=== PATIENT | male | born 1955 | race Caucasian/White ===

== ENCOUNTER 2023-01-04 14:38 | Outpatient (OUT) | payer MEDICARE, SELFPAY ==
--- NOTE | 2023-01-04 15:08 | CT_ITS ---
The [address] [address] Patient Name: LEVON SIMS MRN: [id number] date: 1955 Sex: M Assigned Patient Location: CT Current Patient Location: Accession/Order Number: [id number] Exam Date: 01/04/2023 15:05 Report Date: 01/05/2023 09:34 At the request of: ZAN SANTANA Procedure: CT lung screening low-dose EXAM: CT lung screening low-dose HISTORY: Cigarette smoker F17.210. COMPARISON: CT chest dated 11/29/2020 and low-dose CT lung screen dated 03/11/2020. TECHNIQUE: Routine low-dose CT lung screen without intravenous contrast. FINDINGS: Cardiovascular: Stable severe multivessel coronary artery calcifications. Stable mild aortic valvular calcification. Stable mild atheromatous calcifications thoracic and abdominal aorta. Stable mild atheromatous calcifications great vessels off the aortic arch and origin of the right subclavian artery. Stable moderate atheromatous calcification at the origin of the superior mesenteric artery. Lungs: Centrilobular emphysema. Mild atelectatic density lingular segment of the left upper and the bilateral lower lobes. Mild peribronchial thickening consistent with acute and/or chronic bronchitis. Nodules: Stable 0.2 cm noncalcified nodule right lower chest (series 3 image 115). Stable 0.2 cm noncalcified nodule lateral right lower chest (series 3 image 109). Stable 0.6 cm noncalcified pleural-based nodule medial left upper chest (series 3 image 38). Lymphadenopathy: There are no pathologically enlarged axillary, mediastinal or hilar lymph nodes. Other: The trachea, esophagus and thyroid gland are unremarkable. Upper abdomen: Stable partially imaged 5.8 cm right renal cyst measuring 10 Hounsfield units. Stable mild hypertrophy of the bilateral adrenal glands. Osseous: Degenerative changes at the glenohumeral articulations, severe on the right and moderate on the left. There is slight dextroscoliosis of the thoracic spine. There are multilevel endplate spurs and paravertebral ossifications along the spine. CT/CT lung screening low-dose IMPRESSION: Centrilobular emphysema with mild peribronchial thickening consistent with acute and/or chronic bronchitis. Stable 0.2 cm, 0.2 cm and 0.6 cm noncalcified nodules within the chest. There are no pathologically enlarged lymph nodes. Stable severe multivessel coronary artery calcifications. Stable atherosclerotic disease as otherwise described in the body the report. Stable partially imaged 5.8 cm right renal cyst. Lung rads score 2. A low-dose CT lung screen examination in 12 months is recommended. Electronically authenticated by: LIZZETH HARRIS Date: 01/05/2023 09:34
[2023-01-04 16:10] LABS: Alanine Aminotransferase 161 U/L (16-63); Albumin Level 3.9 g/dL (3.4-5.0); Alkaline Phosphatase 100 U/L (46-116); Anion Gap 12.1; Aspartate Amino Transferase 75 U/L (15-37); BUN Creatinine Ratio 18.6; Bilirubin Total 0.8 mg/dL (0.2-1.0); Calcium 8.7 mg/dL (8.5-10.1); Carbon Dioxide 26.7 mmol/L (21.0-32.0); Chloride 100 mmol/L (98-107); Chol HDL Ratio 2.9; Cholesterol 159 mg/dL (<=200); Estimated GFR (African America >60 (>=60); Estimated GFR (Non-African Ame >60 (>=60); Globulin 3.8 g/dL; Glucose 93 mg/dL (74-106); HDL Cholesterol 55 mg/dL (40-60); LDL Cholesterol Calculated 80.8 mg/dL; Potassium 3.8 mmol/L (3.5-5.1); Sodium 135 mmol/L (136-145); Total Protein 7.7 g/dL (6.4-8.2); Triglycerides 116 mg/dL (<=150); VLDL CHOLESTEROL 23.2 mg/dL
[2023-01-04 16:21] LABS: Prostate Specific Antigen Scrn 0.68 ng/mL (<=4.00)
== END 2023-01-04 14:39 | disposition home or self-care (01) ==
PROVIDERS: PCP Internal Medicine; Visit Provider Internal Medicine
DX: F17.210 Nicotine dependence, cigarettes, uncomplicated (principal); I10 Essential (primary) hypertension; E78.2 Mixed hyperlipidemia; M19.91 Primary osteoarthritis, unspecified site; Z12.5 Encounter for screening for malignant neoplasm of prostate
CPT/HCPCS: 36415; 71271; 80053; 80061; G0103

== ENCOUNTER 2025-03-30 10:54 | Emergency (ER) | payer OTHER, MEDICARE, SELFPAY ==
--- OUTSIDE RECORDS SUMMARY | 2025-03-16 10:45 | XMS_ITS | Encounter Summary ---
Author Organization [facility] Address [address] [facility] [place] [address] Care Team Providers Care Driver Material Handler Name Role Phone Jacoby Ash MD Primary Care Provider [phone] Jacoby Ash MD Unavailable [phone] Encounter Details DateTypeDepartmentCare Team (Latest Contact Info)Yqaczwzauje87/05/2025 10:45 AM ESTOffice Visit [facility] [address] [place] [address] Jacoby Ash MD [address] [facility] [address] [place], [place] [id number] Centrilobular emphysema (HCC) (Primary Dx); Acute bronchiolitis with bronchospasm; Allergic rhinitis, unspecified seasonality, unspecified trigger Social History Tobacco UseTypesPacks/DayYears UsedDateSmoking Tobacco: Every LnzNmjdqiqaad220 Smokeless Tobacco: Never Tobacco Cessation:Ready to Q uit: Not Asked; Counseling Given: Yes Alcohol UseStandard Drinks/GnhdDnfgdrleCud97 (1 standard drink = 0.6 oz pure alcohol)PHQ-2AnswerDate RecordedPatient Health Questionnaire-2 Mmqbk405 Sex and Gender InformationValueDate RecordedSex Assigned at BirthNot on file Legal DalAzft5806/24/2022 6:35 PM EDTGender IdentityNot on fileSexual Orientation Not on filedocumented as of this encounter Last Filed Vital Signs Vital SignReadingTime TakenCommentsBlood Lpttijpp326/7803/16/2025 11:10 AM EST Zfvab752103/16/2025 11:10 AM ESTTemperature--Respiratory Wyuo821105/17/2024 11:10 AM ESTOxygen Pkptplxcoy60%03/16/2025 11:10 AM ESTInhaled Oxygen Concentration-- Hnchrj09.3 kg (166 lb)03/16/2025 11:10 AM NUADyzebf466.2 cm (5' 7 )03/16/2025 11:10 AM ESTBody Mass Nchit7055/05/2025 11:10 AM ESTdocumented in this encounter Functional Status * Over the past 2 weeks, how often have you been bothered by any of the following problems?QuestionAnswerDate of AssessmentAuthorLittle interest or pleasure in doing thingsSeveral days03/16/2025 11:06 AM Arlene AREVALOeling down, depressed, or hopelessNot at all03/16/2025 11:06 AM SALAZAR AREVALO Patient Health Questionnaire-2 Yfrzv974 11:06 AM SALAZAR AREVALO documented as of this encounter Progress Notes * Jacoby Ash MD - 03/16/2025 10:45 AM EST Images from the original note were not included. Subjective Patient ID: Kendrick Alatorre is a 69 y.o. male who presents for No chief complaint on file.. Kendrick presents today for breathing issues. A week ago he started feeling SOB, cough, headache with vomiting, he also had a sore throat. His breathing issues 5 days ago. Over the past 2 weeks, how often have you been bothered by any of the following problems? Little interest or pleasure in doing things: Several days Feeling down, depressed, or hopeless: Not at all Patient Health Questionnaire-2 Score: 1 Current Outpatient Medications on File Prior to Visit Medication Sig Dispense Refill amLODIPine (Norvasc) 10 MG tablet Take 1 tablet (10 mg) by mouth Daily 90 tablet 3 irbesartan-hydroCHLOROthiazide (Avalide) 150-12.5 MG tablet Take 1 tablet by mouth Daily 100 tablet3 meloxicam (Mobic) 15 MG tablet Take 1 tablet (15 mg) by mouth Daily 90 tablet 1 No current facility-administered medications on file prior to visit. I have reviewed and reconciled the history and medication list with the patient today. No Known Allergies Social History Tobacco Use Smoking status: Every Day Current packs/day: 1.00 Average packs/day: 1 pack/day for 47.0 years (47.0 ttl pk-yrs) Types: Cigarettes Smokeless tobacco: Never Vaping Use Vaping status: Never Used Substance Use Topics Alcohol use: Yes Alcohol/week: 18.0 - 24.0 standard drinks of alcohol Types: 18 - 24 Standard drinks or equivalent per week Drug use: Yes Types: Marijuana Family History Problem Relation Name Age of Onset Stroke Father Past Medical History: Diagnosis Date Hypertension History reviewed. No pertinent surgical history. Visit Vitals Smoking Status Every Day Review of Systems Objective Physical Exam Constitutional: General: He is not in acute distress. Appearance: He is normal weight. He is not ill-appearing. HENT: Head: Normocephalic. Nose: Congestion present. Mouth/Throat: Pharynx: Posterior oropharyngeal erythema present. No oropharyngeal exudate. Cardiovascular: Rate and Rhythm: Normal rate and regular rhythm. Heart sounds: Normal heart sounds. No murmur heard. Pulmonary: Effort: Pulmonary effort is normal. Breath sounds: Wheezing present. Musculoskeletal: General: No swelling. Right lower leg: No edema. Left lower leg: No edema. Neurological: Mental Status: He is alert. Psychiatric: Mood and Affect: Mood normal. Thought Content: Thought content normal. Judgment: Judgment normal. Assessment/Plan Diagnoses and all orders for this visit: Centrilobular emphysema (HCC) - albuterol HFA (Ventolin HFA) 90 mcg/act inhaler; Inhale 2 puffs every 4 (four) hours if needed for wheezing or shortness of breath Acute bronchiolitis with bronchospasm - triamcinolone acetonide (Kenalog-40) injection 40 mg Allergic rhinitis, unspecified seasonality, unspecified trigger No follow-ups on file. documented in this encounter Plan of Treatment DateTypeDepartmentCare Team (Latest Contact Info)Qrckwapeifg44/22/2025 9:00 AM ESTOffice Visit [facility] [address] [facility] [address] [place] [address] Jacoby Ash MD [address] [facility] 110 [place] [address] documented as of this encounter Visit Diagnoses Diagnosis Centrilobular emphysema (HCC)- Primary Acute bronchiolitis with bronchospasm Acute bronchiolitis due to other infectious organisms Allergic rhinitis, unspecified seasonality, unspecified trigger documented in this encounter Administered Medications Medication OrderMAR ActionAction DateDoseRateSite triamcinolone acetonide (Kenalog-40) injection 40 mg 40 mg, Intramuscular, Once, On Wed03/16/25 at 1145, For 1 dose Indications:Acute bronchiolitis with izhmnjyedfriMlzja92/05/2025 11:53 AM EST40 mgRight Glutealdocumented in this encounter Additional Health Concerns AssessmentNoted TimePHQ-9 Depression Total Score: 2:00 PM EDT documented as of this encounter Care Teams Team MemberRelationshipSpecialtyStart DateEnd Date Jacoby Ash MD [address] [facility] [address] [place] [address] PCP - GeneralInternal Medicine08/18/22 Jacoby Ash MD [address] [facility] [address] [place] [address] PCP - Devoted04/12/24documented as of this encounter
[2025-03-30] VITALS (44 sets, daily range): BP systolic 103–123; BP diastolic 64–90; PULSE 71–116; TEMP 36.6; O2SAT 93–98; BMI 26.6
--- OUTSIDE RECORDS SUMMARY | 2025-03-30 09:45 | XMS_ITS | Encounter Summary ---
Author Organization [facility] Address [address] [facility] [place] [address] Care Team Providers Care Car Unloader Helper Name Role Phone Jacoby Ash MD Primary Care Provider Jacoby Ash MD Unavailable [phone] Reason for Visit * ReasonCommentsEdema Encounter Details DateTypeDepartmentCare Team (Latest Contact Info)Vtawzrgrenc92/19/2025 9:45 AM ESTOffice Visit [facility] [address] [place] [address] Jacoby Ash MD [address] [facility] 110 [place], [place] [id number] Edema, unspecified type (Primary Dx); Abdominal distention; Elevated LFTs; Centrilobular emphysema (HCC) Social History Tobacco UseTypesPacks/DayYears UsedDateSmoking Tobacco: Every MeeQfoswuiasz622 Smokeless Tobacco: NeverAlcohol UseStandard Drinks/VwyvKyqcribuVpc71 (1 standard drink = 0.6 oz pure alcohol)PHQ-2AnswerDate RecordedPatient Health Questionnaire-2 Huqhr40305/31/2024Sex and Gender InformationValueDate RecordedSex Assigned at BirthNot on fileLegal EslSgte2906/24/2022 6:35 PM EDTGender Identity Not on fileSexual OrientationNot on filedocumented as of this encounter Last Filed Vital Signs Vital SignReadingTime TakenCommentsBlood Sneshvea783/7603/30/2025 9:59 AM EST Rkadf501803/30/2025 9:59 AM ESTTemperature--Respiratory Rate--Oxygen Qkdtcwzrte55% 03/30/2025 9:59 AM ESTInhaled Oxygen Concentration--Zoobta69.6 kg (180 lb) 03/30/2025 9:59 AM HMZMhhvmp219.2 cm (5' 7 )03/30/2025 9:59 AM ESTBody Mass Index28.19105/31/2024 9:59 AM ESTdocumented in this encounter Functional Status * Over the past 2 weeks, how often have you been bothered by any of the following problems?QuestionAnswerDate of AssessmentAuthorLittle interest or pleasure in doing thingsNot at all03/30/2025 10:00 AM Stacy Espinoza LPN Feeling down, depressed, or hopelessNot at all03/30/2025 10:00 AM Stacy Espinoza LPNPatient Health Questionnaire-2 Xvsvg73205/31/2024 10:00 AM Stacy Espinoza LPN documented as of this encounter Progress Notes * Jacoby Ash MD - 03/30/2025 9:45 AM EST Images from the original note were not included. Subjective Patient ID: Kendrick Alatorre is a 69 y.o. male who presents for Edema. Edema Patient complains of edema in bilateral ankles. Onset of symptoms was 5 days ago,.since that time. Associated factors include: weight gain. Cardiac risk factors include advanced age (older than 55 for men, 65 for women), hypertension, male gender, and smoking/ tobacco exposure. Edema Over the past 2 weeks, how often have you been bothered by any of the following problems? Little interest or pleasure in doing things: Not at all Feeling down, depressed, or hopeless: Not at all Patient Health Questionnaire-2 Score: 0 Current Outpatient Medications on File Prior to Visit Medication Sig Dispense Refill albuterol HFA (Ventolin HFA) 90 mcg/act inhaler Inhale 2 puffs every 4 (four) hours if needed for wheezing or shortness of breath 8 g 5 amLODIPine (Norvasc) 10 MG tablet Take 1 [...] reviewed. No pertinent surgical history. Visit Vitals BP 132/76 Pulse 92 Ht 5' 7 Wt 180 lb SpO2 99% BMI 28.19 kg/m?? Smoking Status Every Day BSA 1.96 m?? Review of Systems Objective Physical Exam Constitutional: General: He is not in acute distress. Appearance: He is normal weight. He is not ill-appearing. HENT: Head: Normocephalic. Cardiovascular: Rate and Rhythm: Normal rate and regular rhythm. Heart sounds: Normal heart sounds. No murmur heard. Pulmonary: Effort: Pulmonary effort is normal. Prolonged expiration present. Breath sounds: Decreased air movement present. Abdominal: General: Abdomen is protuberant. Bowel sounds are decreased. There is distension. Tenderness: There is no abdominal tenderness. Hernia: No hernia is present. Comments: Distended abdomen Musculoskeletal: General: No swelling. Right lower leg: No edema. Left lower leg: No edema. Neurological: Mental Status: He is alert. Psychiatric: Mood and Affect: Mood normal. Assessment/Plan Diagnoses and all orders for this visit: Edema, unspecified type - Sent to ER. - Last Echo was a few years ago, preserved EF with septal hypertrophy, mild diastolic dysfunction - Is on Amlodipine 10mg, but has been for some time Abdominal distention - Exam is concerning for tense ascites. Sent to ER for evaluation - Patient was sent to the ER for further evaluation and treatment. The ER was called with a report of patient's condition and history. Medical records will be sent as well. Elevated LFTs - He has a history of LFT elevation felt due to fatty liver Centrilobular emphysema (HCC) Follow up with Dr. Jacoby Ash in about 3 days (around 04/02/2025). documented in this encounter Plan of Treatment DateTypeDepartmentCare Team (Latest Contact Info)Hjrlftptwfz94/22/2025 9:00 AM ESTOffice Visit [facility] [place] [facility] [address] [facility] 110 [place] [address] Jacoby Ash MD [address] [facility] 110 [place] [address] documented as of this encounter Visit Diagnoses Diagnosis Edema, unspecified type- Primary Abdominal distention Flatulence, eructation, and gas pain Elevated LFTs Other abnormal blood chemistry Centrilobular emphysema (HCC) documented in this encounter Additional Health Concerns AssessmentNoted TimePHQ-9 Depression Total Score: 2:00 PM EDT documented as of this encounter Care Teams Team MemberRelationshipSpecialtyStart DateEnd Date Jacoby Ash MD [address] [facility] 110 [place] [address] PCP - GeneralInternal Medicine08/18/22 Jacoby Ash MD [address] [facility] [address] [place] [address] PCP - Devoted04/12/24documented as of this encounter
--- NOTE | 2025-03-30 11:32 | XR_ITS ---
The [address] [address] Patient Name: LEVON SIMS MRN: [id number] date: 1955 Sex: M Assigned Patient Location: ER Current Patient Location: ER Accession/Order Number: [id number] Exam Date: 03/30/2025 11:37 Report Date: 03/30/2025 12:10 At the request of: CLARK TURNER MD Procedure: XR chest 1V PORTABLE AP ERECT CHEST 1121 hours CLINICAL HISTORY: Bloating and lower extremity swelling. History of pneumonia and tobacco use. COMPARISON: CT 11/29/2020 and 01/04/2023 There is shallow inspiration. The heart is borderline prominent though also likely accentuated due to low lung volume. There is also a left pericardial fat pad. There is no suspected vascular congestion. No pneumothorax is seen. Minimal scarring or atelectasis is visualized at the left base. On the right right, there is basilar atelectatic and/or infiltrative change. Pleural effusion is not excluded, particularly on that side without a lateral view. There is mild degenerative change at the shoulders and spine. XR/XR chest 1V IMPRESSION: SHALLOW INSPIRATION. POSSIBLE BORDERLINE CARDIOMEGALY. BIBASILAR PARENCHYMAL CHANGE, GREATER ON THE RIGHT WHERE PLEURAL EFFUSION IS NOT EXCLUDED. Impression dictated by: Kim Quigley M.D. 03/30/2025 12:10 PM Dictation Location: [place] [address] Electronically authenticated by: [id number] Y Date: 03/30/2025 12:10
--- NOTE | 2025-03-30 11:32 | ECG_ITS ---
The [facility] Test Date: 2025-03-30 Pat Name: LEVON SIMS Department: Room: - Gender: Male Information Security Analyst: : 1955 Requested By: ZAN SANTANA Order Number: [id number] [facility] MD: WILL DIGGS M.D. Measurements Intervals [place] Rate: 99 P: -[id number] RI: -93291 QRS: -8 QRSD: 86 T: -68 QT: 364 QTc: 420 Interpretive Statements 1210 Atrial fibrillation 3134 Anterior myocardial infarction, age undetermined 3614 Cannot rule out inferior myocardial infarction, age undetermined 7300 Indeterminate axis 9150 abnormal ECG Compared to ECG 05/02/2021 14:23:25 Myocardial infarct finding now present Indeterminate axis now present Sinus rhythm no longer present Atrial premature complex(es) no longer present Electronically Signed On 03-30-2025 18:45:55 EST by WILL DIGGS M.D.
[2025-03-30 11:42] LABS: Hematocrit 39.1 % (42.0-54.0); Hemoglobin 13.2 g/dL (14.0-18.0); Immature Granulocytes Abs Auto 0.05 10^3/uL (0.00-0.03); Immature Granulocytes Pct Auto 0.4 % (0.0-0.5); Lymphocytes Absolute Auto 1.6 10^3/uL (1.2-3.8); Mean Corpuscular HGB Conc 33.8 g/dL (29.9-35.2); Mean Corpuscular Hemoglobin 33.9 pg (25.9-34.0); Mean Corpuscular Volume 100.5 fL (80.0-94.0); Platelet Count 285 10^3/uL (150-450); Red Blood Count 3.89 10^6/uL (4.70-6.10); White Blood Count 13.6 10^3/uL (4.0-11.0)
[2025-03-30 12:21] LABS: Alanine Aminotransferase 71 U/L (16-63); Albumin Globulin Ratio 0.7; Albumin Level 2.9 g/dL (3.4-5.0); Alkaline Phosphatase 104 U/L (46-116); Anion Gap 10.2; Aspartate Amino Transferase 40 U/L (15-37); Blood Urea Nitrogen 29.0 mg/dL (7.0-18.0); Calcium 8.7 mg/dL (8.5-10.1); Carbon Dioxide 26.2 mmol/L (21.0-32.0); Chloride 102 mmol/L (98-107); Estimated GFR (African America >60 (>=60 mL/min/1.73m^2); Estimated GFR (Non-African Ame >60 (>=60 mL/min/1.73m^2); Globulin 4.3 g/dL; Glucose 127 mg/dL (74-106); Potassium 3.4 mmol/L (3.5-5.1); Sodium 135 mmol/L (136-145); Total Protein 7.2 g/dL (6.4-8.2)
--- NOTE | 2025-03-30 13:28 | ED.GENADUL1 ---
HPI HPI - General Adult General Chief complaint: Recheck/Abnormal Lab/Rx Stated complaint: SENT BY DR SANTANA Time Seen by Provider: 03/30/25 11:31 Source: patient Mode of arrival: walk-in History of Present Illness HPI narrative: The patient have a history of hypertension presenting to us with 2 weeks history of shortness of breath, although the patient initially mentioned that he had pneumonia but when asked he never went to the doctor and got any antibiotic but it was just his idea that he had an infection, the patient has been short of breath at least for the last 2 weeks he also has decreased energy, he never had any chest pain but he had developed bilateral leg edema and abdominal swelling and that why he went to the doctor today When he went to his primary care doctor he told him to come to the ER Related Data Home Medications ?Medication ?Instructions ?Recorded ?Confirmed albuterol sulfate 90 mcg/actuation inhalation 03/30/25 aerosol inhaler amlodipine 10 mg tablet 10 mg PO DAILY 03/30/25 03/30/25 irbesartan 150 1 tab PO DAILY 03/30/25 03/30/25 mg-hydrochlorothiazide 12.5 mg tablet meloxicam 15 mg tablet 15 mg PO DAILY 03/30/25 03/30/25 Allergies Allergy/AdvReac Type Severity Reaction Status Date / Time No Known Drug Allergies Allergy Verified 03/30/25 11:08 Review of Systems ROS Status of ROS 10 or more systems reviewed and unremarkable except as noted in history and below [facility] Medical History (Updated 03/30/25 @ 16:20 by Nancy Fox MD) HTN (hypertension) ?I10 - Essential (primary) hypertension (ICD-10) Social History Little interest or pleasure in doing things: not at all Feeling down, depressed, or hopeless: not at all Exam Narrative Exam Narrative: Nurses notes and vital signs reviewed and patient is not hypoxic. General: Well-appearing and in no apparent distress. Skin: Warm, dry, no pallor noted. No rash. Head: Normocephalic, atraumatic. Neck: Supple, non-tender. Eye: Pupils are equal, round and EOMI. No scleral icterus. Cardiovascular: Irregular rate and Rhythm without murmur, gallop or rub. Respiratory: No accessory muscle use or respiratory distress. Lungs there is decreased entry in the bases and possible crackles as well normal air entry in the apices Chest Wall: no tenderness Back: No midline thoracic or lumbar vertebral tenderness. No CVA tenderness Musculoskeletal: 1+ pitting edema in the lower extremity GI: Abdomen is soft, non-distended. Normal bowel sounds. No masses appreciated. No tenderness to palpation. No rebound, guarding, or rigidity noted. Neurological: A&O x4. No cranial nerve dysfunction observed. No truncal ataxia. Moves all extremities. Sensation intact. Psychiatric: Cooperative and interactive. Normal mood and affect. Constitutional Vital Signs, click to edit/add: Last Vital Signs Temp 97.8 F 03/30/25 11:09 Pulse 102 H 03/30/25 15:10 Resp 30 H 03/30/25 15:10 BP 123/89 03/30/25 11:37 Pulse Ox 95 03/30/25 15:00 O2 Del Method Room Air 03/30/25 11:09 Course Vital Signs Vital signs: Vital Signs Temperature 97.8 F 03/30/25 11:09 Pulse Rate 115 H 03/30/25 11:09 Respiratory Rate 20 03/30/25 11:09 Blood Pressure 104/90 03/30/25 11:09 Pulse Oximetry 98 03/30/25 11:09 Oxygen Delivery Method Room Air 03/30/25 11:09 Temperature 97.8 F 03/30/25 11:09 Pulse Rate 102 H 03/30/25 15:10 Respiratory Rate 30 H 03/30/25 15:10 Blood Pressure 123/89 03/30/25 11:37 Pulse Oximetry 95 03/30/25 15:00 Oxygen Delivery Method Room Air 03/30/25 11:09 Medical Decision Making [facility] Narrative Medical decision making narrative: The patient EKG upon arrival showing A-fib with a heart rate of [address] elevation but there is some T wave inversion that is in lead to 3 and aVF with no old EKG for comparison The patient did not report any chest pain but he has been having 2 weeks of shortness of breath and he had never diagnosed with pneumonia The patient chest x-ray shows bilateral congestion and possible effusion with suspicious of infiltrate although the patient does not have any cough But the patient had a blood culture and he was started on levofloxacin to cover for possible infection The patient chemistry was showing abnormal kidney function with elevated BN peptide of around 7000 in addition to elevated troponin of 800 and repeated result after 2 hours was around that number as well there was no elevation The patient case discussed with Dr. Liu from the cardiology service and he requested the patient to be transferred to [facility] for further evaluation possibly diagnose of acute congestive heart failure, the patient also to be started on Lasix 40 mg IV in addition to 1 dose of digoxin and Lovenox 1 dose The patient is agreeable to transfer and was accepted by Lab Data Labs: Lab Results 03/30/25 03/30/25 Range/Units 11:35 14:20 WBC 13.6 H (4.0-11.0) 10^3/uL RBC 3.89 L (4.70-6.10) 10^6/uL Hgb 13.2 L (14.0-18.0) g/dL Hct 39.1 L (42.0-54.0) % MCV 100.5 H (80.0-94.0) fL MCH 33.9 (25.9-34.0) pg MCHC 33.8 (29.9-35.2) g/dL RDW 13.3 (11.0-15.0) % Plt Count 285 (150-450) 10^3/uL MPV 8.8 L (9.5-13.5) fL Neut % (Auto) 80.0 H (43.0-75.0) % Lymph % (Auto) 11.5 L (20.5-60.0) % [place] % (Auto) 7.6 (1.7-12.0) % Eos % (Auto) 0.1 L (0.9-7.0) % Baso % (Auto) 0.4 (0.2-2.0) % Neut # (Auto) 10.9 H (1.4-6.5) 10^3/uL Lymph # (Auto) 1.6 (1.2-3.8) 10^3/uL [place] # (Auto) 1.0 H (0.3-0.8) 10^3/uL Eos # (Auto) 0.0 (0.0-0.7) 10^3/uL Baso # (Auto) 0.1 (0.0-0.1) 10^3/uL Abs Immat Gran (auto) 0.05 H (0.00-0.03) 10^3/uL Imm/Tot Granulo (auto) 0.4 (0.0-0.5) % Sodium 135 L (136-145) mmol/L Potassium 3.4 L (3.5-5.1) mmol/L Chloride 102 (98-107) mmol/L Carbon Dioxide 26.2 (21.0-32.0) mmol/L Anion Gap 10.2 BUN 29.0 H (7.0-18.0) mg/dL Creatinine 1.09 (0.70-1.30) mg/dL Est GFR ( Amer) >60 (>=60 mL/min/1.73m^2) Est GFR (Non-Af Amer) >60 (>=60 mL/min/1.73m^2) BUN/Creatinine Ratio 26.6 Glucose 127 H (74-106) mg/dL Calcium 8.7 (8.5-10.1) mg/dL Magnesium 2.0 (1.8-2.4) mg/dL Total Bilirubin 0.7 (0.2-1.0) mg/dL AST 40 H (15-37) U/L ALT 71 H (16-63) U/L Alkaline Phosphatase 104 (46-116) U/L Troponin I High Sens 889.9 H* 863.1 H* (4.0-76.1) pg/mL NT-Pro-B Natriuret Pep 7403.0 H* (<=900.0) pg/mL Total Protein 7.2 (6.4-8.2) g/dL Albumin 2.9 L (3.4-5.0) g/dL Globulin 4.3 g/dL Albumin/Globulin Ratio 0.7 Discharge Plan Discharge Chief Complaint: Recheck/Abnormal Lab/Rx Clinical Impression: Acute CHF (congestive heart failure), A-fib, Acute non-ST elevation myocardial infarction (NSTEMI) Patient Disposition: [facility] Time of Disposition Decision: 16:20
[2025-03-30] MEDS: ASPIRIN 81 MG TAB.CHEW 324 MG PO (13:41)
--- OUTSIDE RECORDS SUMMARY | 2025-03-30 13:53 | XMS_ITS | Encounter Summary ---
Author Organization [facility] Address [address] [facility] [place] [address] Care Team Providers Care Manager Payer Name Role Phone Jacoby Ash MD Primary Care Provider [phone] Jacoby Ash MD Unavailable [phone] Encounter Details DateTypeDepartmentCare Team (Latest Contact Info)Oizmswzliwy15/05/2025Travel Social History Tobacco UseTypesPacks/DayYears UsedDateSmoking Tobacco: Every XyeUpicgdysxb699 Smokeless Tobacco: NeverAlcohol UseStandard Drinks/FfexUikkcpumBgk79 (1 standard drink = 0.6 oz pure alcohol)PHQ-2AnswerDate RecordedPatient Health Questionnaire-2 Jchhc222Sex and Gender InformationValueDate RecordedSex Assigned at BirthNot on fileLegal RidSzmj0706/24/2022 6:35 PM EDTGender Identity Not on fileSexual OrientationNot on filedocumented as of this encounter Functional Status * Over the past 2 weeks, how often have you been bothered by any of the following problems?QuestionAnswerDate of AssessmentAuthorLittle interest or pleasure in doing thingsSeveral days03/16/2025 11:06 AM Arlene AREVALOeling down, depressed, or hopelessNot at all03/16/2025 11:06 AM SALAZAR AREVALO Patient Health Questionnaire-2 Laimh710 11:06 AM SALAZAR AREVALO documented as of this encounter Plan of Treatment DateTypeDepartmentCare Team (Latest Contact Info)Lyfcdbrttxw45/22/2025 9:00 AM ESTOffice Visit [facility] [place] [facility] [address] [place] [address] Jacoby Ash MD [address] [place], [place] [address] documented as of this encounter Visit Diagnoses Not on filedocumented in this encounter Additional Health Concerns AssessmentNoted TimePHQ-9 Depression Total Score: 2:00 PM EDT documented as of this encounter Care Teams Team MemberRelationshipSpecialtyStart DateEnd Date Jacoby Ash MD [address] [place], [place] [address] PCP - GeneralInternal Medicine08/18/22 Jacoby Ash MD [address] [place] [address] PCP - Devoted04/12/24documented as of this encounter
--- OUTSIDE RECORDS SUMMARY | 2025-03-30 13:54 | XMS_ITS | Encounter Summary ---
Author Organization [facility] Address [address] [facility] [place] [address] Care Team Providers Care Maintenance Leader Name Role Phone Jacoby Ash MD Primary Care Provider [phone] Jacoby Ash MD Unavailable [phone] Encounter Details DateTypeDepartmentCare Team (Latest Contact Info)Dgfwbvnarjr19/17/2025Telephone [facility] [address] [place] [address] Jacoby Ash MD [address] [place], [place] [id number] Social History Tobacco UseTypesPacks/DayYears UsedDateSmoking Tobacco: Every RdhGhoajvsxfm528 Smokeless Tobacco: NeverAlcohol UseStandard Drinks/DnzbNhqvdwvhZjw63 (1 standard drink = 0.6 oz pure alcohol)PHQ-2AnswerDate RecordedPatient Health Questionnaire-2 Kaasi96605/31/2024Sex and Gender InformationValueDate RecordedSex Assigned at BirthNot on fileLegal UmwElmj8406/24/2022 6:35 PM EDTGender Identity Not on fileSexual OrientationNot on filedocumented as of this encounter Miscellaneous Notes * Telephone Encounter - Stacy Bergeron LPN - 03/29/2025 2:17 PM EST Appt sched tomorrow * Telephone Encounter - Katherine Campbell - 03/28/2025 11:42 AM EST Kendrick called , he stated he is having issues using his inhaler and can't use it. He states it does really help and he needs it but it is making his throat so sore that he had to stop it. He is asking to discuss his options. documented in this encounter Plan of Treatment DateTypeDepartmentCare Team (Latest Contact Info)Akxyngxbhgw08/22/2025 9:00 AM ESTOffice Visit [facility] [place] [facility] [address] [facility] 110 [place] [address] Jacoby Ash MD [address] [facility] 110 [place] [address] documented as of this encounter Visit Diagnoses Not on filedocumented in this encounter Additional Health Concerns AssessmentNoted TimePHQ-9 Depression Total Score: 2:00 PM EDT documented as of this encounter Care Teams Team MemberRelationshipSpecialtyStart DateEnd Date Jacoby Ash MD [address] [facility] 110 [place] [address] PCP - GeneralInternal Medicine08/18/22 Jacoby Ash MD [address] [facility] [address] [place] [address] PCP - Devoted04/12/24documented as of this encounter
--- OUTSIDE RECORDS SUMMARY | 2025-03-30 13:54 | XMS_ITS | Encounter Summary ---
Author Organization [facility] Address [address] [facility] [place] [address] Care Team Providers Care Hr Specialist Name Role Phone Jacoby Ash MD Primary Care Provider [phone] Jacoby Ash MD Unavailable [phone] Encounter Details DateTypeDepartmentCare Team (Latest Contact Info)Wwzfqcxvucm49/19/2025amboo flowsheet [facility] [place] [facility] [address] [place] [phone] Jacoby Ash MD [address] [place], [place] [address] Social History Tobacco UseTypesPacks/DayYears UsedDateSmoking Tobacco: Every KzzGurckukbux208 Smokeless Tobacco: NeverAlcohol UseStandard Drinks/TddzBbtivxgcJfr05 (1 standard drink = 0.6 oz pure alcohol)PHQ-2AnswerDate RecordedPatient Health Questionnaire-2 Huiph22805/31/2024Sex and Gender InformationValueDate RecordedSex Assigned at BirthNot on fileLegal ItzBuvd8306/24/2022 6:35 PM EDTGender Identity Not on fileSexual OrientationNot on filedocumented as of this encounter Plan of Treatment DateType[facility] [[email or web address]]mentCare Team (Latest Contact Info)Wlpevuwqshy15/22/2025 9:00 AM ESTOffice Visit [facility] [place] [facility] [address] [place] [phone] Jacoby Ash MD [address] [place] [place] [address] documented as of this encounter Visit Diagnoses Not on filedocumented in this encounter Additional Health Concerns AssessmentNoted TimePHQ-9 Depression Total Score: 2:00 PM EDT documented as of this encounter Care Teams Team MemberRelationshipSpecialtyStart DateEnd Date Jacoby Ash MD [address] [facility] 110 [place] [address] PCP - GeneralInternal Medicine08/18/22 Jacoby Ash MD [address] [facility] 110 [place] [address] PCP - Devoted04/12/24documented as of this encounter
--- OUTSIDE RECORDS SUMMARY | 2025-03-30 13:54 | XMS_ITS | Clinical Summary ---
Author Organization [facility] Address [address] [place] [address] Care Team Providers Care Dipper Machine Operator Name Role Phone Jacoby Ash MD Primary Care Provider [phone] Jacoby Ash MD Unavailable [phone] Allergies No known active allergies Medications MedicationSigDispense QuantityRefillsLast FilledStart DateEnd DateStatus meloxicam (Mobic) 15 MG tablet Indications:Primary osteoarthritis, unspecified siteTake 1 tablet (15 mg) by mouth Daily 90 tablet 5Active irbesartan-hydroCHLOROthiazide (Avalide) 150-12.5 MG tablet Indications:Benign essential hypertensionTake 1 tablet by mouth Daily 100 tablet 506Active amLODIPine (Norvasc) 10 MG tablet Indications:Essential (primary) hypertensionTake 1 tablet (10 mg) by mouth Daily 90 tablet 5Active albuterol HFA (Ventolin HFA) 90 mcg/act inhaler Indications:Centrilobular emphysema (HCC)Inhale 2 puffs every 4 (four) hours if needed for wheezing or shortness of breath 8 g 5105/17/2025ctiveHospital, Clinic, or Other Facility Administered MedicationOrdered DoseRouteFrequencyStart DateEnd DateStatus triamcinolone acetonide (Kenalog-40) injection 40 mg Indications:Acute bronchiolitis with sxlcfbjfugyp76 hvSBTczr72 Ended Active Problems ProblemNoted DateDiagnosed DateElevated LFTs09/13/2024entrilobular emphysema 09/13/2024igarette ootkab8512/18/2022Localized, primary bocbfyusbnqzwp05/08/2023 Mixed uscscienxsjtcf39/08/2023Neuropathy of right lateral femoral cutaneous nerve12/18/2022enign essential uanqslkncxal13/25/2008 Encounters DateTypeDepartmentCare RovwGvbmgqnawdo92/19/2025 9:45 AM ESTOffice Visit [facility] [place] [facility] [address] [facility] [address] [place] [address] Jacoby Ash MD Edema, unspecified type (Primary Dx); Abdominal distention; Elevated LFTs; Centrilobular emphysema (HCC)03/30/2025amboo flowsheet [facility] [place] [facility] [address] [facility] 110 [place] [address] Jacoyb Ash MD 03/30/20256175Cakoag80/17/2025Telephone [facility] [place] [facility] [address] [facility] [address] [place] [address] Jacoby Ash MD 03/16/2025 10:45 AM ESTOffice Visit [facility] [place] [facility] [address] [facility] 110 [place] [address] Jacoby Ash MD Centrilobular emphysema (HCC) (Primary Dx); Acute bronchiolitis with bronchospasm; Allergic rhinitis, unspecified seasonality, unspecified fnqqflk6003/16/2025amboo flowsheet [facility] [place] [facility] [address] [facility] [address] [place] [address] Jacoby Ash MD 03/16/2025Travelfrom Last 3 Months Family History Medical HistoryRelationNameCommentsStrokeFatherRelationNameStatusCommentsFather DeceasedMotherDeceased Social History Tobacco UseTypesPacks/DayYears UsedDateSmoking Tobacco: Every OeqTnbwetaunl608 Smokeless Tobacco: Never Tobacco Cessation:Ready to Q uit: Not Asked; Counseling Given: Yes Alcohol UseStandard Drinks/SbuhRibaynvbSsm74 (1 standard drink = 0.6 oz pure alcohol)PHQ-2AnswerDate RecordedPatient Health Questionnaire-2 Sslfn98605/31/2024 Sex and Gender InformationValueDate RecordedSex Assigned at BirthNot on file Legal SceMkyz6006/24/2022 6:35 PM EDTGender IdentityNot on fileSexual Orientation Not on file Last Filed Vital Signs Vital SignReadingTime TakenCommentsBlood Vxhvphge760/7603/30/2025 9:59 AM EST Ygjxx122603/30/2025 9:59 AM ESTTemperature--Respiratory Htlu679305/17/2024 11:10 AM ESTOxygen Torbiorgpm48%03/30/2025 9:59 AM ESTInhaled Oxygen Concentration-- Eigjac56.6 kg (180 lb)03/30/2025 9:59 AM ZOMFuwtcw241.2 cm (5' 7 )03/30/2025 9:59 AM ESTBody Mass Index28.19105/31/2024 9:59 AM EST Plan of Treatment DateTypeDepartmentCare Team (Latest Contact Info)Sayasckegak86/22/2025 9:00 AM ESTOffice Visit [facility] [place] [facility] [address] [facility] 110 [place] [address] Jacoby Ash MD [address] [facility] 110 [place] [address] Health MaintenanceDue DateLast DoneCommentsCT Qmgeoviainjd48/29/1955olonoscopy 1954FIT1954FOBT1954Lung Cancer Screening Shared Decision Bqufjf36 1954Tdvthtsqmwdvr99/29/1955OVID-19 Vaccine ( season) 2024Influenza Vaccine (#1)2024Medicare Annual Wellness (AWV) /07/2024, 09/13/2023, 3Pneumococcal Vaccine: 65+ Years (1 of 2 - PCV)09/13/2025Postponed from 1973 (Patient Refused)Colorectal Cancer Umcxrrcoz08/19/2027FIT-DNA, 03/18/2020, 03/18/2020, Additional history exists Procedures Procedure NamePriorityDate/TimeAssociated DiagnosisCommentsLAB COLOGUARD?? COLON CANCER GQIHLUQahbfhh79/19/2024 11:30 AM EDT Encounter for screening for malignant neoplasm of colon from Last 3 Months or Most Recently Relevant to Health Maintenance Results * Cologuard?? colon cancer screening (06/29/2023 11:30 AM EDT)ComponentValueRef RangeTest MethodAnalysis TimePerformed AtPathologist SignatureNONINV COLON CA DNA+OCC BLD SCRN STL-BNBSmvmqwvkGwapguiy13/25/2024 9:55 AM EDTEXCTSpace (CLIA #:[id number])Comment: NEGATIVE TEST RESULT. A negative Cologuard result indicates a low likelihood that a colorectal cancer (CRC) or advanced adenoma (adenomatous polyps with more advanced pre-malignant features) ??is present. The chance that a person with a negative Cologuard test has a colorectal cancer is less than 1in 1500 (negative predictive value >99.9%) or has an advanced adenoma is less than 5.3% (negative predictive value 94.7%). These data are based on a prospective cross-sectional study of 10,000individuals at average risk for colorectal cancer who were screened with both Cologuard and colonoscopy. (Gisella Echavarria al, N Engl J Med 2014;370(14):5406-2256) The normal value (reference range) for this assay is negative. COLOGUARD RE-SCREENING RECOMMENDATION: Periodic colorectal cancer screening is an important part ofpreventive healthcare for asymptomatic individuals at average risk for colorectal cancer. ??Following a negative Cologuard result, the [place] [employer] Society and U.S. Multi-Society Task Force screening guidelines recommend a Cologuard re-screening interval of 3 years. References: [place] [employer] Society Guideline for Colorectal Cancer Screening: https://www.cancer.or g/cancer/bnbpn-vldlun-iaocjt/rvskexrwf-vjwqvisuk-chakniu/acs-recommendations.htm fernando; Jayro RIVERO, Bonny WYATT, Anna KnoxK, Colorectal Cancer Screening: Recommendations for Physicians and Patients from the U.S. Multi-Society Task Force on Colorectal Cancer Screening , Am J Gastroenterology 2017; 112:7963-5988. TEST DESCRIPTION: Composite algorithmic analysis of stool DNA-biomarkers with hemoglobin immunoassay. ?? Quantitative values of individual biomarkers are not reportable and are not associated with individual biomarker result reference ranges. Cologuard is intended for colorectal cancer screening ofadults of either sex, 45 years or older, who are at average-risk for colorectal cancer (CRC). Cologuard has been approved for use by the U.S. FDA. The performance of Cologuard was established in a cross sectional study of average-risk adults aged 50-84. Cologuard performance in patients ages 45 to 49 years was estimated by sub-group analysis of near-age groups. Colonoscopies performed for a positive result may find as the most clinically significant lesion: colorectal cancer [4.0%], advanced adenoma (including sessile serrated polyps greater than or equal to 1cm diameter) [20%] or non- advanced adenoma [31%]; or no colorectal neoplasia [45%]. These estimates are derived from a prospective cross-sectional screening study of 10,000 individuals at average risk for colorectal cancer who were screened with both Cologuard and colonoscopy. (Gisella Echavarria al, N Engl J Med 2014;370(14):0002-5605.) Cologuard may produce a false negative or false positive result (no colorectal cancer or precancerous polyp present at colonoscopy follow up). A negative Cologuard test result does not guarantee the absence of CRC or advanced adenoma (pre-cancer). The current Cologuard screening interval is every 3 years. ([place] [employer] Society and U.S. Multi-Society Task Force). Cologuard performance data in a 10,000 patient pivotal study using colonoscopy as the reference method can be accessed at the following location: www.[employer]/results. Additional description of the Cologuard test process, warnings and precautions can be found at www.[employer].com. Specimen (Source)Anatomical Location / LateralityCollection Method / Volume Collection TimeReceived TimeStool specimen (specimen)06/29/2023 11:30 AM EDT 06/30/2023 11:42 AM EDT Narrative Authorizing ProviderResult TypeResult StatusDanijennifer NESS [facility]LECULAR DIAGNOSTICS ORDERABLESFinal ResultPerforming OrganizationAddressCity/State/ZIP CodePhone Number .[employer] (CLIA #:[id number]) [address] [place], [place] [address], [employer] (CLIA #:[id number]) [address] [place], [place] [address] from Last 3 Months or Most Recently Relevant to Health Maintenance Insurance * Guarantor: Kendrick Alatorre TypeRelation to PatientDate of BirthPhone Billing AddressPersonal/PjeikiDusn95/29/1956 [address] [address] [place] [address] Care Teams Team MemberRelationshipSpecialtyStart DateEnd Date Jacoby Ash MD [address] [facility] 110 [place] [address] PCP - GeneralInternal Medicine08/18/22 Jacoby Ash MD [address] [facility] 110 [place] [address] PCP - Devoted04/12/24
--- OUTSIDE RECORDS SUMMARY | 2025-03-30 13:54 | XMS_ITS | Encounter Summary ---
Author Organization [facility] Address [address] [facility] [place] [address] Care Team Providers Care Hand Edge Bander Name Role Phone Jacoby Ash MD Primary Care Provider [phone] Jacoby Ash MD Unavailable [phone] Encounter Details DateTypeDepartmentCare Team (Latest Contact Info)Wetiheaafaw03/05/2025amboo flowsheet [facility] [place] [facility] [address] [place] [address] Jacoby Ash MD [address] [place], [place] [address] Social History Tobacco UseTypesPacks/DayYears UsedDateSmoking Tobacco: Every IbcPozrxoomqv933 Smokeless Tobacco: NeverAlcohol UseStandard Drinks/YbjaLvjtkzluCcv73 (1 standard drink = 0.6 oz pure alcohol)PHQ-2AnswerDate RecordedPatient Health Questionnaire-2 Qbbtb536Sex and Gender InformationValueDate RecordedSex Assigned at BirthNot on fileLegal GnrOqvb2806/24/2022 6:35 PM EDTGender Identity Not on fileSexual OrientationNot on filedocumented as of this encounter Plan of Treatment DateTypeDepartmentCare Team (Latest Contact Info)Cappxygjolu99/22/2025 9:00 AM ESTOffice Visit [facility] [place] [facility] [address] [place] [address] Jacoby Ash MD [address] [place] [place], [place] [address] documented as of this encounter Visit Diagnoses Not on filedocumented in this encounter Additional Health Concerns AssessmentNoted TimePHQ-9 Depression Total Score: 106/06/2023 2:00 PM EDT documented as of this encounter Care Teams Team MemberRelationshipSpecialtyStart DateEnd Date Jacoby Ash MD [address] [facility] 110 [place] [address] PCP - GeneralInternal Medicine08/18/22 Jacoby Ash MD [address] [facility] 110 [place] [address] PCP - Devoted04/12/24documented as of this encounter
--- OUTSIDE RECORDS SUMMARY | 2025-03-30 13:54 | XMS_ITS | Encounter Summary ---
Author Organization [facility] Address [address] [facility] [place] [address] Care Team Providers Care Community Associate Name Role Phone Jacoby Ash MD Primary Care Provider [phone] Jacoby Ash MD Unavailable [phone] Encounter Details DateTypeDepartmentCare Team (Latest Contact Info)Mmebyltxate42/19/2025Travel Social History Tobacco UseTypesPacks/DayYears UsedDateSmoking Tobacco: Every PtfTczxtpyjxm032 Smokeless Tobacco: NeverAlcohol UseStandard Drinks/YpiaObuktxauXpo29 (1 standard drink = 0.6 oz pure alcohol)PHQ-2AnswerDate RecordedPatient Health Questionnaire-2 Dgwlp448Sex and Gender InformationValueDate RecordedSex Assigned at BirthNot on fileLegal CwaVomy6906/24/2022 6:35 PM EDTGender Identity Not on fileSexual OrientationNot on filedocumented as of this encounter Functional Status * Over the past 2 weeks, how often have you been bothered by any of the following problems?QuestionAnswerDate of AssessmentAuthorLittle interest or pleasure in doing thingsNot at all03/30/2025 10:00 AM Stacy Espinoza LPN Feeling down, depressed, or hopelessNot at all03/30/2025 10:00 AM Stacy Espinoza LPNPatient Health Questionnaire-2 Aebnk01305/31/2024 10:00 AM Stacy Espinoza LPN documented as of this encounter Plan of Treatment DateTypeDepartmentCare Team (Latest Contact Info)Nksyygvtwfp28/22/2025 9:00 AM ESTOffice Visit [facility] [place] [facility] [address] [place] [address] Jacoby Ash MD [address] [place] [address] documented as of this encounter Visit Diagnoses Not on filedocumented in this encounter Additional Health Concerns AssessmentNoted TimePHQ-9 Depression Total Score: 2:00 PM EDT documented as of this encounter Care Teams Team MemberRelationshipSpecialtyStart DateEnd Date Jacoby Ash MD [address] [place] [address] [place] [address] PCP - GeneralInternal Medicine08/18/22 Jacoby Ash MD [address] [place] [place] [address] PCP - Devoted04/12/24documented as of this encounter
[2025-03-30 13:56] LABS: Magnesium 2.0 mg/dL (1.8-2.4)
[2025-03-30] MEDS: FUROSEMIDE 40 MG/4 ML VIAL IVP (14:10)
[2025-03-30] MEDS: ENOXAPARIN SODIUM 80 MG/0.8 ML SYRINGE SUBQ (14:10)
[2025-03-30] MEDS: DIGOXIN 500 MCG/2 ML AMPUL 250 MCG IV (14:23)
[2025-03-30] MEDS: LEVOFLOXACIN IN DEXTROSE 5 % 750 MG/150 ML PREMIX 100 MG IV (15:28)
== END 2025-03-30 18:01 | disposition short-term general hospital (02) ==
PROVIDERS: Emergency Provider Emergency Medicine; PCP Internal Medicine
DX: I21.4 Non-ST elevation (NSTEMI) myocardial infarction (principal); I11.0 Hypertensive heart disease with heart failure; I50.9 Heart failure, unspecified; I48.91 Unspecified atrial fibrillation
CPT/HCPCS: 36415; 71045; 80053; 83735; 83880; 84484; 85025; 87040; 93005; 96365; 96366; 96372; 96375; 99285; J1160; J1650; J1938